=== PATIENT | female | born 1960 | race Caucasian/White ===

== ENCOUNTER 2025-02-22 07:21 | Outpatient (CLI) | payer MEDICARE, MEDICAID ==
[2025-02-22] MEDS ORDERED: Iopamidol 370 76% 100 ML VIAL ONE (11:22)
== END 2025-02-22 07:22 | disposition home or self-care (01) ==
LOC: CT 07:21
PROVIDERS: ATTEND Urology
DX: N20.0 Calculus of kidney (principal); R91.1 Solitary pulmonary nodule; R93.421 Abnormal radiologic findings on diagnostic imaging of right kidney
CPT/HCPCS: 74178; Q9967

== ENCOUNTER 2025-03-29 18:17 | Emergency (ER) | payer MEDICARE, OTHER ==
[2025-03-29] MEDS ORDERED: Proparacaine 0.5% Opth 15 ML BOT ONE (19:16)
[2025-03-29] MEDS ORDERED: Fluorescein Opthalmic Strip ONE (19:16)
== END 2025-03-29 20:50 | disposition home or self-care (01) ==
LOC: ERS 18:17
DX: B02.23 Postherpetic polyneuropathy (principal)
CPT/HCPCS: 99283